=== PATIENT | female | born 1960 | race Caucasian/White ===

== ENCOUNTER 2016-12-25 09:19 | Outpatient (CLI) | payer OTHER ==
[2016-12-25 10:15] LABS: #Basophils 0.1 thou/uL (0.0-0.2); #Eosinphils 0.7 thou/uL (0.0-0.7); #Lymphocytes 1.6 thou/uL (1.20-3.40); #Monocytes 0.5 thou/uL (0.11-0.59); #Neutrophils 5.1 thou/uL (1.40-6.50); %Basophils 1.3 % (0.0-1.0); %Eosinophils 8.6 % (0.0-10.0); %Monocytes 5.7 % (0.0-10.0); Mean Platelet Volume 6.1 fL (7.4-10.4); White Blood Cell (WBC) Count 7.9 thou/uL (4.8-10.8)
[2016-12-25 10:34] LABS: ALT (SGPT) 20 U/L (0-55); AST (SGOT) 19 U/L (5-34); Alkaline Phosphatase 69 U/L (40-150); Anion Gap 14 mmol/L (10-20); BUN (Urea Nitrogen) 22 mg/dL (9.8-20.1); Bilirubin, Total 0.6 mg/dL (0.2-1.2); Calc. Creatinine Clearance 0 mL/min (70-130); Calcium 9.1 mg/dL (7.8-10.44); Carbon Dioxide 26 mmol/L (22-29); Chloride 104 mmol/L (98-107); Estimated GFR-MDRD 68; Globulin 2.6 g/dL (2.4-3.5); LDL Cholesterol, Calculated 81 mg/dL; Protein, Total 6.7 g/dL (6.0-8.3)
== END 2016-12-25 09:20 | disposition home or self-care (01) ==
LOC: HPCALD 09:19
PROVIDERS: ATTEND Family Medicine
DX: E78.5 Hyperlipidemia, unspecified (principal); I10 Essential (primary) hypertension
CPT/HCPCS: 36415; 80053; 80061; 84443; 85025

== ENCOUNTER 2022-01-26 02:27 | Emergency (ER) | payer OTHER ==
[2022-01-26] MEDS ORDERED: Thiamine 100 MG TAB ONE (03:02)
[2022-01-26] MEDS ORDERED: Folic Acid 1 MG TAB ONE (03:02)
[2022-01-26] MEDS ORDERED: Lorazepam 2 MG/ML VIAL ONE (03:08)
[2022-01-26 03:26] LABS: #Basophils 0.1 thou/uL (0.0-0.2); #Eosinphils 0.2 thou/uL (0.0-0.7); #Lymphocytes 1.2 thou/uL (1.20-3.40); #Monocytes 0.6 thou/uL (0.11-0.59); #Neutrophils 3.8 thou/uL (1.40-6.50); %Basophils 1.8 % (0.0-1.0); %Eosinophils 2.7 % (0.0-10.0); %Monocytes 10.1 % (0.0-10.0); %Neutrophils 64.4 % (42.0-75.0); Hemoglobin 13.8 g/dL (12.0-16.0); Mean Corpuscular HGB CONC 33.8 g/dL (32.0-36.0); Mean Corpuscular Hemoglobin 34.9 pg (27.0-31.0); Platelet Count 277 thou/uL (130-400); RBC Distribution Width 13.6 % (11.5-14.5); Red Blood Cell (RBC) Count 3.95 mill/uL (4.20-5.40); White Blood Cell (WBC) Count 5.9 thou/uL (4.8-10.8)
[2022-01-26 03:28] LABS: Acetaminophen Less than 10.0 mcg/mL (10.0-30.0); Alcohol 163 mg/dL (Less than 10); Salicylate Less than 8.0 mg/dL (15.0-30.0)
[2022-01-26 03:31] LABS: ALT (SGPT) 49 U/L (8-55); AST (SGOT) 51 U/L (5-34); Alkaline Phosphatase 89 U/L (40-110); Anion Gap 21 mmol/L (10-20); BUN (Urea Nitrogen) 21 mg/dL (9.8-20.1); Bilirubin, Total 0.7 mg/dL (0.2-1.2); Calc. Creatinine Clearance 0 mL/min (70-130); Calcium 8.2 mg/dL (7.8-10.44); Carbon Dioxide 21 mmol/L (23-31); Chloride 108 mmol/L (98-107); Globulin 2.5 g/dL (2.4-3.5); Glucose 82 mg/dL (80-115); Potassium 4.7 mmol/L (3.5-5.1); Protein, Total 6.5 g/dL (5.8-8.1); Sodium 145 mmol/L (136-145)
[2022-01-26 03:41] LABS: MDiff Complete? YES; Macrocytosis SLIGHT = 6-15 cells (100X) (0-5/hpf)
== END 2022-01-26 08:05 | disposition home or self-care (01) ==
LOC: BURERS 02:27
DX: F10.129 Alcohol abuse with intoxication, unspecified (principal); I10 Essential (primary) hypertension; E78.5 Hyperlipidemia, unspecified; E78.00 Pure hypercholesterolemia, unspecified; Z79.899 Other long term (current) drug therapy
CPT/HCPCS: 36415; 80053; 80307; 85025; 96374; J2060

== ENCOUNTER 2022-03-12 06:49 | Emergency (ER) | payer OTHER ==
[2022-03-12] MEDS ORDERED: Thiamine HCl 200 MG/2 ML VIAL ONE (07:27)
[2022-03-12] MEDS ORDERED: Ondansetron PF 4 MG/2 ML Vial ONE (07:27)
[2022-03-12 07:51] LABS: ALT (SGPT) 60 U/L (8-55); AST (SGOT) 52 U/L (5-34); Albumin 3.7 g/dL (3.4-4.8); Alkaline Phosphatase 95 U/L (40-110); Anion Gap 24 mmol/L (10-20); BUN (Urea Nitrogen) 37 mg/dL (9.8-20.1); Bilirubin, Total 0.6 mg/dL (0.2-1.2); Calc. Creatinine Clearance 0 mL/min (70-130); Calcium 7.8 mg/dL (7.8-10.44); Carbon Dioxide 16 mmol/L (23-31); Chloride 107 mmol/L (98-107); Globulin 2.7 g/dL (2.4-3.5); Glucose 70 mg/dL (80-115); Protein, Total 6.4 g/dL (5.8-8.1); Sodium 142 mmol/L (136-145)
[2022-03-12 07:53] LABS: Acetaminophen Less than 10.0 mcg/mL (10.0-30.0); Alcohol 262 mg/dL (Less than 10); Lipase 24 U/L (8-78); Magnesium 2.7 mg/dL (1.6-2.6); Salicylate Less than 8.0 mg/dL (15.0-30.0)
[2022-03-12 07:55] LABS: Hemoglobin 14.5 g/dL (12.0-16.0); Mean Corpuscular HGB CONC 33.1 g/dL (32.0-36.0); Mean Corpuscular Hemoglobin 33.9 pg (27.0-31.0); Mean Platelet Volume 6.8 fL (7.4-10.4); Platelet Count 249 thou/uL (130-400); Red Blood Cell (RBC) Count 4.27 mill/uL (4.20-5.40); White Blood Cell (WBC) Count 9.4 thou/uL (4.8-10.8)
[2022-03-12 07:59] LABS: Band 2 % (5-11); Eosinophils 1 % (0-10); Lymphocytes 9 % (21-51); MDiff Complete? YES; Macrocytosis SLIGHT = 6-15 cells (100X) (0-5/hpf); Monocytes 3 % (0-10); Neutrophil 85 % (42-75); Platelet Morphology Comment Appears Adequate
[2022-03-12] MEDS ORDERED: Dextrose 50% Abboject 50 ML SYRINGE ONE (09:14)
[2022-03-12 10:26] LABS: Bilirubin Negative (Negative); Blood, Urine Small (Negative); Clarity Cloudy (Clear); Glucose, Urine (Dipstick) Negative (Negative); Ketone, Urine Negative (Negative); Leukocyte Negative (Negative); Nitrite Negative (Negative); Protein, Urine (Dipstick) Negative (Neg-Trace); Specific Gravity, Urine 1.015 (1.005-1.030); Urobilinogen 0.2 mg/dL (Less than 2)
[2022-03-12 10:34] LABS: Bacteria/HPF 1+ HPF (None Seen); RBC/HPF 0-3 HPF (0-3); Squamous Epithelial 0-3 HPF (0-3); WBC/HPF 0-3 HPF (0-3)
[2022-03-12 10:35] LABS: White Blood Cell Cast 0-3 LPF (None Seen)
[2022-03-12 10:42] LABS: Amphetamine Not Detected (NotDetected); Barbiturates Screen Not Detected (NotDetected); Benzodiazepine Screen Not Detected (NotDetected); Cocaine Metabolite Screen Not Detected (NotDetected); Medtox Control Line Valid? VALID (VALID); Methadone Not Detected (NotDetected); Methamphetamine Not Detected (NotDetected); Opiate Screen Not Detected (NotDetected); Oxycodone Screen Not Detected (NotDetected); Phencyclidine (PCP) Not Detected (NotDetected); THC/Cannabinoid Screen Not Detected (NotDetected); Tricyclic Screen Not Detected (NotDetected)
[2022-03-12] MEDS ORDERED: Lorazepam 0.5 MG TAB ONE ×2 (11:55)
== END 2022-03-12 18:23 | disposition home or self-care (01) ==
LOC: BURERS 06:49
DX: F10.20 Alcohol dependence, uncomplicated (principal); E78.5 Hyperlipidemia, unspecified; I10 Essential (primary) hypertension; F17.210 Nicotine dependence, cigarettes, uncomplicated; Z79.899 Other long term (current) drug therapy
CPT/HCPCS: 36415; 36416; 80053; 80306; 80307; 81003; 81015; 83690; 83735; 84443; 85025; 93005; 94640; 94760; 96374; 96375; J2405; J3411; J7620; J7999

== ENCOUNTER 2022-03-18 09:01 | Emergency (ER) | payer OTHER ==
[2022-03-18 09:47] LABS: #Basophils 0.1 thou/uL (0.0-0.2); #Eosinphils 0.1 thou/uL (0.0-0.7); #Lymphocytes 1.1 thou/uL (1.20-3.40); #Monocytes 0.4 thou/uL (0.11-0.59); #Neutrophils 2.9 thou/uL (1.40-6.50); %Basophils 1.8 % (0.0-1.0); %Eosinophils 2.7 % (0.0-10.0); %Lymphocytes 24.3 % (21.0-51.0); %Monocytes 8.3 % (0.0-10.0); Hemoglobin 14.3 g/dL (12.0-16.0); MDiff Complete? YES; Macrocytosis SLIGHT = 6-15 cells (100X) (0-5/hpf); Mean Corpuscular HGB CONC 32.6 g/dL (32.0-36.0); Mean Corpuscular Hemoglobin 34.3 pg (27.0-31.0); Mean Platelet Volume 6.9 fL (7.4-10.4); Platelet Count 162 thou/uL (130-400); RBC Distribution Width 13.2 % (11.5-14.5); Red Blood Cell (RBC) Count 4.18 mill/uL (4.20-5.40); White Blood Cell (WBC) Count 4.6 thou/uL (4.8-10.8)
[2022-03-18 09:54] LABS: Acetaminophen Less than 10.0 mcg/mL (10.0-30.0); Alcohol 323 mg/dL (Less than 10); Salicylate Less than 8.0 mg/dL (15.0-30.0)
[2022-03-18 09:59] LABS: ALT (SGPT) 128 U/L (8-55); AST (SGOT) 138 U/L (5-34); Albumin 3.8 g/dL (3.4-4.8); Alkaline Phosphatase 101 U/L (40-110); Anion Gap 24 mmol/L (10-20); BUN (Urea Nitrogen) 16 mg/dL (9.8-20.1); Bilirubin, Total 0.4 mg/dL (0.2-1.2); Calc. Creatinine Clearance 0 mL/min (70-130); Calcium 7.9 mg/dL (7.8-10.44); Carbon Dioxide 17 mmol/L (23-31); Chloride 110 mmol/L (98-107); Globulin 2.8 g/dL (2.4-3.5); Glucose 65 mg/dL (80-115); Potassium 4.7 mmol/L (3.5-5.1); Protein, Total 6.6 g/dL (5.8-8.1); Sodium 146 mmol/L (136-145)
[2022-03-18 10:18] LABS: Bilirubin Negative (Negative); Blood, Urine Moderate (Negative); Clarity Clear (Clear); Glucose, Urine (Dipstick) Negative (Negative); Ketone, Urine Trace mg/dL (Negative); Leukocyte Negative (Negative); Nitrite Negative (Negative); Protein, Urine (Dipstick) Negative (Neg-Trace); Specific Gravity, Urine 1.015 (1.005-1.030); Urobilinogen 0.2 mg/dL (Less than 2)
[2022-03-18 10:23] LABS: Bacteria/HPF None Seen HPF (None Seen); RBC/HPF 0-3 HPF (0-3); Squamous Epithelial 0-3 HPF (0-3); WBC/HPF None Seen HPF (0-3)
[2022-03-18] MEDS ORDERED: Lorazepam 2 MG/ML VIAL ONE (12:02)
[2022-03-18] MEDS ORDERED: Lorazepam 0.5 MG TAB ONE (12:04)
== END 2022-03-18 13:06 | disposition home or self-care (01) ==
LOC: BURERS 09:01
DX: F10.229 Alcohol dependence with intoxication, unspecified (principal); E78.5 Hyperlipidemia, unspecified; E78.00 Pure hypercholesterolemia, unspecified; I10 Essential (primary) hypertension; F17.210 Nicotine dependence, cigarettes, uncomplicated; Z79.899 Other long term (current) drug therapy; Y90.8 Blood alcohol level of 240 mg/100 ml or more
CPT/HCPCS: 36415; 80053; 80307; 81003; 81015; 85025; 99284; J2060